=== PATIENT | male | born 2005 | race African-American/Black ===

== ENCOUNTER 2023-04-25 18:28 | Emergency (ER) | payer OTHER, SELFPAY ==
--- NOTE | ~2023-04-25 | CT_ITS ---
EXAMINATION: CT abdomen pelvis w con DATE: 04/25/2023 21:21 INDICATION: abdominal pain TECHNIQUE: Computed tomography (CT) of the abdomen and pelvis was performed with intravenous contrast . Automated exposure control and iterative reconstruction technique were employed. The dose-length pr oduct was 1406.68 mGy-cm. COMPARISON: None. FINDINGS: Lower thorax: Unremarkable Liver: Normal. Biliary/Gallbladder: Gallbladder is normal. No bile duct dilation. Pancreas: No mass or duct dilation. Spleen: Normal. Adrenals:No mass. Kidneys: No suspicious mass, obstructing stone, or hydronephrosis. GI tract: Fluid filled colon. No small or large bowel dilation. Normal appendix. Mesentery/Peritoneum: No ascites, mass, or free air. Retroperitoneum: No mass. Pelvis: Pelvic organs are within normal limits. Soft Tissues: Soft tissues and body wall unremarkable. Bones: No acute osseous finding. IMPRESSION: Fluid-filled colon as can be seen with diarrheal illness. Otherwise normal CT abdomen and pelvis find ings. Reviewed, dictated and finalized at location K. IMPRESSION: Fluid-filled colon as can be seen with diarrheal illness. Otherwise normal CT a bdomen and pelvis findings.
[2023-04-25 18:51] VITALS: BP 135/83; PULSE 85; RESP 16; TEMP 36.4; O2SAT 100
--- NOTE | 2023-04-25 20:13 | ED.GENADULT ---
HPI - General Adult General Chief complaint: Abdominal Pain Stated complaint: abdominal pain and vomiting Time Seen by Provider: 04/25/23 19:16 History of Present Illness HPI narrative: Patient 88-year-old gentleman who presents emergency from with chief complaint of abdominal pain. The patient states that this afternoon he started having pain in the lower quadrants of his abdomen patient reports the pain is sharp reports not improved by anything reports he had episodes of nausea and vomiting denies diarrhea Related Data Allergies Allergy/AdvReac Type Severity Reaction Status Date / Time No Known Allergies Allergy Unverified 04/25/23 18:29 Review of Systems Review of Systems: A 10 system review of systems was completed on the patient and is negative except for what is stated in the HPI. Nursing and ancillary documentation was reviewed. Exam Narrative: GENERAL: Well-appearing, well-nourished, and in no acute distress. HEAD: Normocephalic, atraumatic. EYES: PERRLA and EOMI. ENT: Nares clear, no rhinorrhea or epistaxis. Mucous membranes moist. NECK: Supple. CHEST: Clear to auscultation. No respiratory distress. HEART: Regular rate and rhythm. No murmur heard. Normal peripheral pulses. ABDOMEN: Soft, diffusely tender in the lower quadrants, nondistended, normal active bowel sounds. EXTREMITIES: Normal range of motion. No edema. SKIN: Warm, dry, no rash. NEURO: No focal deficits. Alert and oriented x3. PSYCH: Normal mood and affect. Course Vital Signs Vital signs: Vital Signs Temperature 36.4 C 04/25/23 18:51 Pulse Rate 85 04/25/23 18:51 Respiratory Rate 16 04/25/23 18:51 Blood Pressure 135/83 04/25/23 18:51 Pulse Oximetry 100 04/25/23 18:51 Oxygen Delivery Room Air 04/25/23 18:51 Temperature 36.4 C 04/25/23 18:51 Pulse Rate 85 04/25/23 18:51 Respiratory Rate 16 04/25/23 18:51 Blood Pressure 135/83 04/25/23 18:51 Pulse Oximetry 100 04/25/23 18:51 Oxygen Delivery Room Air 04/25/23 18:51 Medical Decision Making [facility] Narrative Medical decision making narrative: Differential diagnosis includes gastroenteritis, colitis, appendicitis, CT scan of the abdomen pelvis showed evidence of a diarrhea type illness but no evidence of colitis diverticulitis appendicitis. Laboratory studies were within normal limits Patient feels much better after receiving IV fluids and antiemetics Vital Signs Vital Signs: Vital Signs Temperature 36.4 C 04/25/23 18:51 Pulse Rate 85 04/25/23 18:51 Respiratory Rate 16 04/25/23 18:51 Blood Pressure 135/83 04/25/23 18:51 Pulse Oximetry 100 04/25/23 18:51 Oxygen Delivery Room Air 04/25/23 18:51 Temperature 36.4 C 04/25/23 18:51 Pulse Rate 85 04/25/23 18:51 Respiratory Rate 16 04/25/23 18:51 Blood Pressure 135/83 04/25/23 18:51 Pulse Oximetry 100 04/25/23 18:51 Oxygen Delivery Room Air 04/25/23 18:51 Lab Data 04/25/23 20:13 04/25/23 20:13 Labs: Lab Results 04/25/23 04/25/23 Range/Units 20:13 20:26 WBC 10.6 H (4.5-10.0) K/mm3 RBC 5.89 (4.6-6.20) M/mm3 Hgb 17.4 (14.0-18.0) g/dL Hct 51.8 (42.0-52.0) % MCV 87.9 (80-100) fl MCH 29.5 (26-34) pg MCHC 33.6 (32-36) g/dl RDW 12.4 (11.5-14.5) % Plt Count 188 (150-375) k/mm3 MPV 9.8 (7.4-10.4) fl Immature Gran % (Auto) Not Reportable Neut % (Auto) Not Reportable Lymph % (Auto) Not Reportable [place] % (Auto) Not Reportable Eos % (Auto) Not Reportable Baso % (Auto) Not Reportable Lymph # (Auto) Not Reportable [place] # (Auto) Not Reportable Eos # (Auto) Not Reportable Baso # (Auto) Not Reportable Abs Immat Gran (auto) Not Reportable Absolute Neuts (auto) Not Reportable Absolute Nucleated RBC Not Reportable Total Counted 100 Neutrophils % (Manual) 86 H (46-73) % Band Neutrophils % 7 H (0-6) % Lympho
[2023-04-25] MEDS: SODIUM CHLORIDE 0.9% IV 1,000 ML 999 ML IV CONT (20:16)
[2023-04-25] MEDS: ONDANSETRON INJ 4 MG/2 ML VIAL IV PUSH (20:17)
[2023-04-25 20:23] LABS: Hematocrit 51.8 % (42.0-52.0); Hemoglobin 17.4 g/dL (14.0-18.0); Mean Corpuscular HGB Conc 33.6 g/dl (32-36); Mean Corpuscular Hemoglobin 29.5 pg (26-34); Mean Corpuscular Volume 87.9 fl (80-100); Mean Platelet Volume 9.8 fl (7.4-10.4); Platelet Count Result 188 k/mm3 (150-375); Red Blood Count 5.89 M/mm3 (4.6-6.20); Red Cell Distribution Width 12.4 % (11.5-14.5); White Blood Count 10.6 K/mm3 (4.5-10.0)
[2023-04-25] MEDS: MORPHINE SULFATE (*CRX) 4 MG/ML INJ IV PUSH (20:25)
[2023-04-25 20:37] LABS: Alanine Aminotransferase 43 U/L (6-50); Albumin Level 5.2 g/dL (3.7-5.6); Alkaline Phosphatase 75 U/L (58-237); Anion Gap 13 mmol/L (8-16); Aspartate Amino Transferase 38 U/L (17-59); Bilirubin,Total 0.9 mg/dL (0.2-1.3); Blood Urea Nitrogen 17 mg/dL (8-21); Calcium 10.2 mg/dL (8.9-10.7); Carbon Dioxide 24 mmol/L (22-30); Chloride 107 mmol/L (98-107); Estimated CRCL calculation 144 ml/min; Estimated Glomerular Filt Rate > 60; Glucose 107 mg/dL (65-110); Lipase 57 U/L (23-300); Potassium 4.2 mmol/L (3.4-5.0); Sodium 144 mmol/L (134-143)
[2023-04-25 20:52] LABS: Appearance Urine Cloudy (Clear); Bacteria Urine None Seen /hpf; Bilirubin Urine Negative (Negative); Blood Urine Negative (Negative); Color Urine Dark Yellow (Yellow); Glucose Urine UA Negative (Negative); Hyaline Casts Urine Present /lpf; Ketones Urine 1+ mg/dL (Negative); Leukocyte Esterase Ur Negative LEU/UL (Negative); Nitrate Urine Negative (Negative); Protein Urine 1+ mg/dL (Negative); RBC Urine 0-2 /hpf (0-2); Specific Grav Ur 1.038 (1.001-1.035); Squamous Epithelial Cell Urine None seen /hpf (Few); WBC Urine 0-5 /hpf
[2023-04-25 20:53] LABS: Add Urine Microscopic? YES
[2023-04-25 20:59] LABS: Band Neutrophils Percent 7 % (0-6); Eosinophils Percent Manual 1 % (0-4); Lymphocytes Absolute Manual 0.42 K/mm3 (1.1-4.5); Monocytes Absolute Manual 0.21 K/mm3 (0.1-0.90); Monocytes Percent Manual 2 % (3-9); Neutrophils Absolute Manual 9.85 K/mm3 (1.3-6.7); Neutrophils Percent Manual 86 % (46-73); Total Cells Counted 100
[2023-04-25 21:00] LABS: Platelet Estimate Adequate (Adequate); Schistocytes None Seen (NORMAL)
== END 2023-04-25 22:28 | disposition home or self-care (01) ==
PROVIDERS: Emergency Provider Emergency Medicine
DX: K52.9 Noninfective gastroenteritis and colitis, unspecified (principal)
CPT/HCPCS: 36415; 74177; 80053; 81001; 83690; 85025; 96361; 96374; 96375; 99284; J2270; J2405; J7030; Q9967

== ENCOUNTER 2024-01-06 17:58 | Emergency (ER) | payer SELFPAY ==
--- NOTE | ~2024-01-06 | XR_ITS ---
XR hand LT min 3V Ordering provider: Nichelle Mobley APRN History: . pain 1st 2nd digit since yesterday. Swelling . Comparison: December 12, 2017 FINDINGS: BONES: No acute fracture or dislocation. JOINT SPACES: Well maintained. SOFT TISSUES: Unremarkable. IMPRESSION: No acute osseous abnormality left hand. Reviewed, dictated and finalized at location A.
[2024-01-06 18:19] VITALS: BP 138/82; PULSE 67; RESP 20; TEMP 36.9; O2SAT 98
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
== END 2024-01-06 18:40 | disposition home or self-care (01) ==
PROVIDERS: Emergency Provider Nurse Practitioner
DX: S63.602A Unspecified sprain of left thumb, initial encounter (principal); Y04.0XXA Assault by unarmed brawl or fight, initial encounter
CPT/HCPCS: 73130; 99213; G0463

== ENCOUNTER 2024-08-11 18:42 | Emergency (ER) | payer SELFPAY ==
--- NOTE | ~2024-08-11 | CT_ITS ---
EXAMINATION: CT abdomen pelvis w con DATE: 08/11/2024 20:41 INDICATION: lower abd pain TECHNIQUE: Computed tomography (CT) of the abdomen and pelvis was performed with 100 mL Omnipaque-350 intravenous contrast. Automated exposure control and iterative reconstruction technique were employe d. The dose-length product was 1567.46 mGy-cm. COMPARISON: 04/25/2023. FINDINGS: Lower thorax: Unremarkable Liver: Normal. Biliary/Gallbladder: Gallbladder is normal. No bile duct dilation. Pancreas: No mass or duct dilation. Spleen: Normal. Adrenals:No mass. Kidneys: No suspicious mass, obstructing stone, or hydronephrosis. Indeterminate density subcentimete r lesion in the right midpole, smaller than in the prior examination, likely hemorrhagic or proteinac eous cyst. GI tract: Mild distal esophageal and gastric wall edema. No small or large bowel dilation. Normal dejan endix. Mesentery/Peritoneum: No ascites, mass, or free air. Prominent central mesenteric lymph nodes, a sugg estion of early surrounding fat halos. Retroperitoneum: No mass. Pelvis: Nearly empty urinary bladder with wall thickening. Soft Tissues: Soft tissues and body wall unremarkable. Bones: No acute osseous finding. IMPRESSION: Mild esophagitis/gastritis. Findings suggestive of early mesenteric panniculitis. Cystitis versus urinary bladder wall thickening from incomplete distention. Reviewed, dictated and finalized at location K. NCILIATION MANAGER
[2024-08-11 18:51] VITALS: BP 131/75; PULSE 68; RESP 18; TEMP 36.4; O2SAT 100
[2024-08-11 19:40] LABS: Basophils Percent Auto 0.2 % (0.2-1.2); Eosinophils Absolute Auto 0.1 K/mm3 (0-0.3); Eosinophils Percent Auto 0.8 % (0-4.4); Hematocrit 48.4 % (42.0-52.0); Hemoglobin 16.4 g/dL (14.0-18.0); Immature Granulocyte Absolute 0.03 K/mm3 (0.00-0.031); Immature Granulocyte Percent A 0.3 % (0-0.5); Lymphocytes Absolute Auto 0.83 K/mm3 (0.9-3.2); Lymphocytes Percent Auto 8.7 % (18.3-44.2); Mean Corpuscular HGB Conc 33.9 g/dl (32-36); Mean Corpuscular Hemoglobin 29.9 pg (26-34); Mean Corpuscular Volume 88.2 fl (80-100); Mean Platelet Volume 9.6 fl (7.4-10.4); Monocytes Absolute Auto 0.5 K/mm3 (0.1-0.6); Monocytes Percent Auto 4.9 % (2.6-8.5); Neutrophils Absolute Auto 8.1 K/mm3 (1.3-6.7); Neutrophils Percent Auto 85.1 % (45.5-73.1); Platelet Count Result 176 k/mm3 (150-375); Red Blood Count 5.49 M/mm3 (4.6-6.20); Red Cell Distribution Width 12.4 % (11.5-14.5); White Blood Count 9.5 K/mm3 (4.5-10.0)
[2024-08-11] MEDS: ONDANSETRON INJ 4 MG/2 ML VIAL IV PUSH (19:44)
--- NOTE | 2024-08-11 19:44 | PC.NURSE ---
Patient became diaphoretic and began vomiting during IV start.
--- NOTE | 2024-08-11 19:48 | ED_ITS ---
HPI - Abdominal Pain General Chief Complaint: Abdominal Pain Stated Complaint: sharp abd pain Time Seen by Provider: 08/11/24 19:16 Source: patient Mode of arrival: ambulatory Limitations: no limitations History of Present Illness HPI narrative: patient is a 18-year-old male who presents the ED with report of lower abdominal pain. Patient reports he has had intermittent brief episodes of pain over the last couple of days. Today, pain has been more persistent and severe. Present throughout his lower abdomen. Has not taken anything for pain. Did have an episode of nausea with vomiting after receiving IV in the ED, but otherwise denied nausea, vomiting, diarrhea, constipation, fevers, urinary complaints. States he had similar symptoms last year which improved on their own. Related Data Home Medications ?Medication ?Instructions ?Recorded ?Confirmed ?Last Taken ?Type No Home Medications 01/06/24 01/06/24 Unknown History Allergies Allergy/AdvReac Type Severity Reaction Status Date / Time No Known Allergies Allergy Verified 08/11/24 18:53 Review of Systems 2 Review of Systems: All systems reviewed & are unremarkable except as noted in HPI. All systems reviewed & are unremarkable except as noted in HPI and below Exam 2 Narrative: GENERAL: Well appearing, obese with BMI of 37.6, non-toxic, in no acute distress. HEAD: Normocephalic, atraumatic. RESPIRATORY: Airway patent, respirations nonlabored. Clear to auscultation bilaterally, no rales, rhonchi, wheezing. CARDIOVASCULAR: Regular rate and rhythm without murmurs, rubs, or gallops. ABDOMINAL: Soft, no significant focal tenderness throughout lower abdomen, no rebound, nondistended. Normoactive BS. MUSCULOSKELETAL: Moves all extremities. No gross deformities. SKIN: Warm, dry, normal color. NEURO: A&O X3. Speech clear. PSYCHIATRIC: Appropriate mood and affect. Normal interaction. Course Vital Signs Vital signs: Vital Signs Temperature 97.6 F 08/11/24 18:51 Pulse Rate 68 08/11/24 18:51 Respiratory Rate 18 08/11/24 18:51 Blood Pressure 131/75 08/11/24 18:51 Pulse Oximetry 100 08/11/24 18:51 Oxygen Delivery Room Air 08/11/24 18:51 Temperature 97.6 F 08/11/24 18:51 Pulse Rate 82 08/11/24 22:00 Respiratory Rate 18 08/11/24 22:00 Blood Pressure 119/69 08/11/24 22:00 Pulse Oximetry 98 08/11/24 22:00 Oxygen Delivery Room Air 08/11/24 18:51 MDM - Abdominal Pain MDM Narrative Medical decision making narrative: patient presented to ED with intermittent lower abdominal pain, worsening today. Vital signs are stable upon arrival. In no acute distress. Patient reported nausea related to receiving IV. Near vasovagal episode, though this was resolved by the time of my evaluation. He was given IV Zofran with improvement. Denies wanting anything for pain currently. CBC without leukocytosis or anemia. CMP is unremarkable. Stable electrolytes and kidney function. Normal LFTs and lipase. Urine with 1+ ketones, no signs of infection. CT scan of abdomen /pelvis was obtained and showing mild gastritis and findings suggestive of early mesenteric panniculitis. No other surgical findings. Discussed lab and imaging findings with patient. He has remained stable throughout ED stay. Has not required anything further for pain. Feel he is safe for discharge home at this time. Will refer to surgery for further evaluation of panniculitis. Will also rx zofran/bentyl for home use as needed. Discussed very strict return precautions. Patient in agreement plan. Feels comfortable w/ discharge home. Discharged in stable condition. Medical Records Attestation: I reviewed the patient's medical records. Lab Data Attestation: I reviewed the patient's lab results. 08/11/24 19:33 08/11/24 19:33 Labs: Lab Results 08/11/24 08/11/24 Range/Units 19:33 19:59 WBC 9.5 (4.5-10.0) K/mm3 RBC 5.49 (4.6-6.20) M/mm3 Hgb 16.4 (14.0-18.0) g/dL Hct 48.4 (42.0-52.0) % MCV 88.2 (80-100) fl MCH 29.9 (26-34) pg MCHC 33.9 (32-36) g/dl RDW 12.4 (11.5-14.5) % Plt Count 176 (150-375) k/mm3 MPV 9.6 (7.4-10.4) fl Immature Gran % (Auto) 0.3 (0-0.5) % Neut % (Auto) 85.1 H (45.5-73.1) % Lymph % (Auto) 8.7 L (18.3-44.2) % [place] % (Auto) 4.9 (2.6-8.5) % Eos % (Auto) 0.8 (0-4.4) % Baso % (Auto) 0.2 (0.2-1.2) % Lymph # (Auto) 0.83 L (0.9-3.2) K/mm3 [place] # (Auto) 0.5 (0.1-0.6) K/mm3 Eos # (Auto) 0.1 (0-0.3) K/mm3 Baso # (Auto) 0.0 (0.0-0.1) K/mm3 Abs Immat Gran (auto) 0.03 (0.00-0.031) K/mm3 Absolute Neuts (auto) 8.1 H (1.3-6.7) K/mm3 Absolute Nucleated RBC 0.000 (0.0-0.012) K/mm3 Nucleated RBC % 0.0 (0.0-0.2) % Sodium 138 (137-145) mmol/L Potassium 3.9 (3.4-5.0) mmol/L Chloride 106 (98-107) mmol/L Carbon Dioxide 22 (22-30) mmol/L Anion Gap 10 (4-12) mmol/L BUN 17 (9-20) mg/dL Creatinine 0.91 (0.7-1.3) mg/dL Estim Creat Clear Calc 156 ml/min Estimated GFR > 60 (59 - ) Glucose 86 (65-110) mg/dL Calcium 9.3 (8.4-10.2) mg/dL Total Bilirubin 0.9 (0.2-1.3) mg/dL AST 34 (17-59) U/L ALT 37 (6-50) U/L Alkaline Phosphatase 73 (38-126) U/L Total Protein 8.0 (6.3-8.2) g/dL Albumin 4.6 (3.5-5.1) g/dL Lipase 54 (23-300) U/L Urine Color Yellow (Yellow) Urine Appearance Clear (Clear) Urine pH 5.0 (5.0-9.0) Ur Specific [place] 1.029 (1.001-1.035) Urine Protein Negative (Negative) mg/dL Urine Glucose (UA) Negative (Negative) mg/dL Urine Ketones 1+ H (Negative) mg/dL Ur Blood (Man) Negative (Negative) Urine Nitrate Negative (Negative) Urine Bilirubin Negative (Negative) Urine Urobilinogen 0.2 (<2.0) mg/dL Leukocyte Esterase Rfl Negative (Negative) LENIN/UL Imaging Data Attestation: I personally reviewed and interpreted this imaging study as follows: Radiologist's impression: ITS Impressions Abdomen/Pelvis CT 08/11/24 20:43 IMPRESSION: Mild esophagitis/gastritis. Findings suggestive of early mesenteric panniculitis. Cystitis versus urinary bladder wall thickening from incomplete distention. Discharge Plan Discharge Clinical Impression: Intermittent lower abdominal pain, Mesenteric panniculitis Patient Disposition: Home, Self-Care Condition: Stable Instructions: Antibiotic Form, Gastroenteritis (ED), Abdominal Pain (ED) Additional Instructions: Utilize zofran as needed for further nausea. Recommend Tylenol, Bentyl as needed for further abdominal discomfort. Increase fluid intake. Recommend electrolyte rich fluids, gatorade, pedialyte, body armour. Recommend clear liquids or bland diet until symptoms improve, such as bananas, rice, applesauce, toast, or crackers. Follow up with your primary care doctor and/or surgery for further evaluation of mesenteric panniculitis. Return to the ED if you experience worsening or severe symptoms, unable to keep down food or drink, severe pain, fevers, rectal bleeding, vomiting blood, or any other symptoms of concern. Patient Language: Ukrainian Prescriptions: New dicyclomine 20 mg tablet 20 mg PO TID PRN (Reason: Abdominal Discomfort) Qty: 15 0RF ondansetron 4 mg tablet,disintegrating 4 mg PO Q8H PRN (Reason: nausea and vomiting) Qty: 15 0RF No Action No Home Medications Follow-up/Referrals: PHYSICIAN,DOCK MANAGER [Primary Care Provider] - Manish Sanford MD [Physician] - (GENERAL SURGERY) Time of Disposition: 21:26
[2024-08-11 19:49] LABS: Alanine Aminotransferase 37 U/L (6-50); Albumin Level 4.6 g/dL (3.5-5.1); Alkaline Phosphatase 73 U/L (38-126); Anion Gap 10 mmol/L (4-12); Aspartate Amino Transferase 34 U/L (17-59); Bilirubin,Total 0.9 mg/dL (0.2-1.3); Blood Urea Nitrogen 17 mg/dL (9-20); Calcium 9.3 mg/dL (8.4-10.2); Carbon Dioxide 22 mmol/L (22-30); Chloride 106 mmol/L (98-107); Estimated CRCL calculation 156 ml/min; Estimated Glomerular Filt Rate > 60; Glucose 86 mg/dL (65-110); Lipase 54 U/L (23-300); Potassium 3.9 mmol/L (3.4-5.0); Sodium 138 mmol/L (137-145)
[2024-08-11 20:05] LABS: Add Urine Microscopic? NO; Appearance Urine Clear (Clear); Bilirubin Urine Negative (Negative); Blood Urine Negative (Negative); Color Urine Yellow (Yellow); Glucose Urine UA Negative (Negative); Ketones Urine 1+ mg/dL (Negative); Leukocyte Esterase Ur Negative LEU/UL (Negative); Nitrate Urine Negative (Negative); Protein Urine Negative (Negative); Specific Grav Ur 1.029 (1.001-1.035); Urobilinogen Urine 0.2 mg/dL (<2.0)
[2024-08-11] MEDS: KETOROLAC 30 MG/ML VIAL (*BKC) IV PUSH (21:55)
[2024-08-11 22:00] VITALS: BP 119/69; PULSE 82; RESP 18; O2SAT 98
== END 2024-08-11 22:02 | disposition home or self-care (01) ==
PROVIDERS: Emergency Provider Physician Assistant
DX: M79.3 Panniculitis, unspecified (principal); K20.90 Esophagitis, unspecified without bleeding; K29.70 Gastritis, unspecified, without bleeding; R93.41 Abnormal radiologic findings on diagnostic imaging of renal pelvis, ureter, or bladder
CPT/HCPCS: 36415; 74177; 80053; 81003; 83690; 85025; 96374; 96375; 99284; J1885; J2405; Q9967